=== PATIENT | female | born 1970 | race American Indian/Alaskan Native ===

== ENCOUNTER 2016-11-27 09:13 | Emergency (ER) | payer SELFPAY ==
[2016-11-27 09:24] VITALS: BP 116/82
[2016-11-27] MEDS ORDERED: XYLOCAINE 1% MPF 5 mL INFILTRATI ONE (09:48)
[2016-11-27] MEDS ORDERED: TORADOL IM ONE (09:48)
[2016-11-27] MEDS ORDERED: BOOSTRIX IM ONE (09:48)
--- NOTE | 2016-11-27 09:54 | Emergency Department Report ---
- General Chief Complaint: Wound/Laceration Stated Complaint: LT HAND MIDDLE FINGER LAC Time Seen by Provider: 11/27/16 09:40 Source: patient Mode of arrival: Ambulatory Limitations: No Limitations - History of Present Illness Initial Comments: Patient presents stating "I cut my finger on a slicer" last night, time given at 11 pm. States was reaching into her home cabinet for something when she cut her left middle finger by a potato slicer. Reports pain to finger especially with bending/using finger. Denies weakness, tingling, numbness. Denies being on blood thinners. Denies other acute complaints today. - Related Data Previous Rx's Medication Instructions Recorded Last Taken Type Ibuprofen [Motrin] 600 mg PO Q8H PRN #15 tablet 11/27/16 Unknown Rx Allergies Allergy/AdvReac Type Severity Reaction Status Date / Time No Known Allergies Allergy Unverified 11/27/16 09:18 ED Review of Systems ROS: Stated complaint: LT HAND MIDDLE FINGER LAC Other details as noted in HPI Comment: All other systems reviewed and negative ED Past Medical Hx - Past Medical History Previous Medical History?: No - Surgical History Past Surgical History?: No - Social History Smoking Status: Unknown if ever smoked Substance Use Type: None - Medications Home Medications: Home Medications Medication Instructions Recorded Confirmed Last Taken Type Ibuprofen [Motrin] 600 mg PO Q8H PRN #15 tablet 11/27/16 Unknown Rx ED Physical Exam - General Limitations: No Limitations General appearance: alert, in no apparent distress - Head Head exam: Present: atraumatic, normocephalic - Eye Eye exam: Present: normal appearance, PERRL, EOMI - Respiratory Respiratory exam: Present: normal lung sounds bilaterally. Absent: respiratory distress - Cardiovascular Cardiovascular Exam: Present: regular rate, normal rhythm - Extremities Exam Extremities exam: Present: full ROM, tenderness (tip of L middle finger), normal capillary refill, other (ROM is painful, but full. Flexion and extensor tendons in tact.). Absent: normal inspection (1.5 cm linear, superficial lac to DIP joint of L middle finger, adhikari surface.), pedal edema, joint swelling, calf tenderness - Neurological Exam Neurological exam: Present: alert, oriented X3, normal gait, reflexes normal. Absent: motor sensory deficit - Psychiatric Psychiatric exam: Present: normal affect, normal mood - Skin Skin exam: Present: warm, dry, other (1.5 cm lac as mentioned above.). Absent: cyanosis ED Course Vital Signs 11/27/16 09:22 Temperature 97.9 F Pulse Rate 59 L Respiratory 18 Rate Blood Pressure 116/82 O2 Sat by Pulse 100 Oximetry - Laceration /Wound Repair Left Distal Finger Wound Location: upper extremity (Left adhikari DIP, middle finger) Wound's Depth, Shape: superficial, linear Wound Explored: no foreign body removed Irrigated w/ Saline (ccs): 40 Betadine Prep?: Yes Anesthesia: 1% Lidocaine Volume Anesthetic (ccs): 2 Wound Debrided: minimal Wound Repaired With: sutures Suture Size/Type: 5:0 Number of Sutures: 4 Layer Closure?: No Sterile Dressing Applied?: Yes Progress: Patient tolerated procedure and progressed well. FROM post procedure. +2 distal pulses. Critical care attestation.: If time is entered above; I have spent that time in minutes in the direct care of this critically ill patient, excluding procedure time. ED Disposition Clinical Impression: Laceration of left middle finger Disposition: DISCHARGED TO HOME OR SELFCARE Is pt being admited?: No Does the pt Need Aspirin: No Condition: Stable Instructions: Suture Care (ED), Acute Wound Care (ED) Additional Instructions: You were evaluated today after an incident in which you sustained a superficial laceration to your left middle finger. Examination shows no visible or palpable deformities, normal motor function and sensation with normal reflexes. Superficial laceration was closed with non-absorbable stitches that need to be removed in 10 days. Follow instructions for care. Do not apply any additional lotions, creams or other topical medications for 5-7 days. May take Motrin as needed for pain. Monitor closely for 24-48 hours after incident for acute changes in behavior or physical function. Return to emergency department for any new or worsening symptoms. Follow-up with primary care provider in 2-3 days. Prescriptions: Ibuprofen [Motrin] 600 mg PO Q8H PRN #15 tablet PRN Reason: Pain Referrals: PRIMARY CARE, [Primary Care Provider] - 2-3 Days [facility] [Outside] - 2-3 Days
== END 2016-11-27 10:39 | disposition home or self-care (01) ==
LOC: ED 09:13
DX: S61.213A Laceration without foreign body of left middle finger without damage to nail, initial encounter (principal); W45.8XXA Other foreign body or object entering through skin, initial encounter; Y93.9 Activity, unspecified; Y99.9 Unspecified external cause status; Y92.009 Unspecified place in unspecified non-institutional (private) residence as the place of occurrence of the external cause
CPT/HCPCS: 12001; 90471; 90715; 96372; 99282; J1885

== ENCOUNTER 2016-12-07 08:25 | Emergency (ER) | payer SELFPAY ==
[2016-12-07 08:54] VITALS: BP 132/88
--- NOTE | 2016-12-07 09:40 | Emergency Department Report ---
HPI - General Chief Complaint: Laceration/Recheck/Suture Time Seen by Provider: 12/07/16 09:12 - HPI HPI: 46-year-old female presents today for suture removal from her left middle finger. Patient states that she cut herself on a shredder blade on 10/27/16. Positive for continued soreness. Denies drainage or bleeding. Denies numbness , weakness, paresthesias. Denies fever, chills, nausea, vomiting, chest pain, shortness of breath, abdominal pain. ED Past Medical Hx - Past Medical History Previous Medical History?: No - Surgical History Past Surgical History?: No - Social History Smoking Status: Current Every Day Smoker Substance Use Type: Non Opiate Pain, Prescribed - Medications Home Medications: Home Medications Medication Instructions Recorded Confirmed Last Taken Type Ibuprofen [Motrin] 600 mg PO Q8H PRN #15 tablet 11/27/16 Unknown Rx ED Review of Systems ROS: Stated complaint: SUTURE REMOVAL Other details as noted in HPI Constitutional: denies: chills, fever, malaise Eyes: denies: eye pain ENT: denies: ear pain, throat pain, congestion Respiratory: denies: cough, shortness of breath, wheezing Cardiovascular: denies: chest pain, palpitations Endocrine: no symptoms reported Gastrointestinal: denies: abdominal pain, nausea, vomiting Neurological: denies: headache, weakness, numbness, paresthesias Physical Exam - Physical Exam Vital Signs: Vital Signs 12/07/16 08:52 Temperature 97.8 F Pulse Rate 66 Respiratory 18 Rate Blood Pressure 132/88 O2 Sat by Pulse 100 Oximetry Physical Exam: GENERAL: The patient is well-developed and well-nourished. Patient is in NAD. HEAD: Normocephalic. Atraumatic. CHEST/LUNGS: Clear to auscultation throughout. HEART/CARDIOVASCULAR: Regular rate and rhythm. ABDOMEN: Abdomen is soft, nontender. No guarding or rebound tenderness. LEFT HAND: A well-healed laceration noted over the palmar aspect of third digit DIP joint. Positive for minimal tenderness to palpation. No bleeding or drainage noted. Normal sensation. 2 point discrimination intact. Peripheral pulses intact. Capillary refill less than 2 seconds. NEURO: Alert and oriented x 3. Normal gait. ED Course Vital Signs 12/07/16 08:52 Temperature 97.8 F Pulse Rate 66 Respiratory 18 Rate Blood Pressure 132/88 O2 Sat by Pulse 100 Oximetry - Procedure Description Procedures done: The wound demonstrates no evidence of infection with adequate tensile strength at the wound margins at this time to warrant suture removal. Sutures were removed individually using and forceps, with a total of 4 sutures removed. Re-examination of the wound following the procedure reveals no evidence of any retained foreign bodies and no dehiscence. Wound care precautions were given to the patient verbally. ED Medical Decision Making - Lab Data Vital Signs 12/07/16 08:52 Temperature 97.8 F Pulse Rate 66 Respiratory 18 Rate Blood Pressure 132/88 O2 Sat by Pulse 100 Oximetry - Medical Decision Making 46-year-old female presents today for suture removal from left middle finger. 4 sutures were removed, patient tolerated procedure well. Wound care instructions were provided. Patient is in no acute distress at this time. She will be discharged home and is encouraged to follow up with a primary care provider. She is encouraged to return to the emergency room for any worsening symptoms. Critical care attestation.: If time is entered above; I have spent that time in minutes in the direct care of this critically ill patient, excluding procedure time. ED Disposition Clinical Impression: Visit for suture removal Disposition: DISCHARGED TO HOME OR SELFCARE Is pt being admited?: No Does the pt Need Aspirin: No Condition: Stable Instructions: Suture Removal (ED) Additional Instructions: Follow-up with primary care provider. Return to the emergency department if symptoms worsen. Referrals: PRIMARY CARE, [Primary Care Provider] - 3-5 Days [facility] [Outside] - 3-5 Days Forms: Work/School Release Form(ED) Time of Disposition: 09:44
== END 2016-12-07 10:03 | disposition home or self-care (01) ==
LOC: ED 08:25
DX: S61.213D Laceration without foreign body of left middle finger without damage to nail, subsequent encounter (principal); F17.200 Nicotine dependence, unspecified, uncomplicated; X58.XXXD Exposure to other specified factors, subsequent encounter; Y99.9 Unspecified external cause status; Y92.89 Other specified places as the place of occurrence of the external cause